=== PATIENT | female | born 1975 | race African-American/Black ===

== ENCOUNTER → 2017-07-24 | Day surgery (SDC) | payer OTHER ==
[~2017-07-24] MED LIST: ADVIL200 M1 PO; BELLADONNA/OPIUM 60 MG SUPP PR ONE; BIOTIN10 MG PO; BIRTH CONTROL PILLS; CEFTRIAXONE SOD 1 GM VIAL ONE; DEXAMETHASONE SOD PHOS INJ 4 MG/ML VIAL ONE; FENTANYL CITRATE/PF 100MCG/2 ML INJ ONE; GENTAMICIN SULFATE IV SCH; IOPAMIDOL 610MG/1ML 300 MG/ML VIAL IV ONE; LIDOCAINE HCL 2% LOCAL INJ 5 ML SDV VIAL INJ ONE; MIDAZOLAM HCL 2 MG/2 ML VIAL ONE; ONDANSETRON HCL INJ 2 MG/ML VIAL ONE; PROPOFOL IV EMULSION 10 MG/ML 20 ML VIAL ONE; SEVOFLURANE INHAL SOLN 250 ML PEN BTL ONE; SODIUM CHLORIDE 0.9% IV SCH
--- NOTE | 2017-08-31 04:58 | Operative Report ---
DATE OF PROCEDURE: July 24, 2017 PREOPERATIVE DIAGNOSES 1. Right recurrent vesicoureteric reflux. 2. Urinary tract infection history. POSTOPERATIVE DIAGNOSES 1. Right recurrent vesicoureteric reflux. 2. Urinary tract infection history. PROCEDURES PERFORMED 1. Cystourethroscopy with bilateral ureteral catheterization and retrograde ureteropyelography (separate procedure performed into 3 separate ureters, 2 on the right, 1 on the left, procedure performed for urinary tract infections). 2. Interpretation of retrograde ureteropyelography. 3. Supervision of fluoroscopy. No radiologist present. 4. Cystourethroscopy with intraureteric implantation of Deflux (separate procedure performed to control the reflux). 5. Pelvic examination under anesthesia. ANESTHESIA: General. COMPLICATIONS: None. CLINICAL SUMMARY: Bennett Hare is a 42-year-old woman with vesicoureteric reflux. 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 She has undergone a failed ureteral reimplantation as she previously had a Deflux procedure. Patient was evaluated, found to have vesicoureteric reflux and elected to proceed with Deflux implantation. She is deferred to open surgery. She is aware of the risks of bleeding, infection, injury to adjacent structures, need for additional procedures and failure. She understood all these risks and elected to proceed. OPERATIVE PROCEDURE IN DETAIL: Informed consent was verified. Bennett Hare was properly identified, taken to the operating room, and placed on the cystoscopy table in supine position. Anesthesia was uneventfully begun. The patient was then carefully and gently re-positioned in dorsal lithotomy position with all pressure points well padded. Her genitalia were prepared and draped in usual sterile fashion. A 22.5-British cystoscope sheath with the obturator in place was atraumatically inserted in patient's urethra and the bladder was drained. Panendoscopy of the urinary bladder revealed no suspicious mucosal lesions. No tumors, no stones, and no diverticula. Scars were noted from previous bladder surgeries performed by another urologist. There was even a skin bridge noted or at least a mucosal bridge noted on the right hand side of the bladder. Two ureteral orifices were identified on the right, 1 ureteral orifice was identified on the left. A ureteral catheter was used to cannulate all 3 ureteral orifices and retrograde ureteropyelograms were performed. Interpretation of retrograde ureteropyelography: Contrast was instilled in retrograde fashion bilaterally. There were no tumors, no stones, and no diverticula. Unobstructed drainage was observed fluoroscopically. 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 Deflux was utilized. A total of 2 syringes were utilized. Both techniques were utilized as well. First, we performed the HIT technique by hydrodistending the right ureteral orifice that was involved with the reflux into the lower moiety. We inserted the needle into the ureteral mucosa posteriorly and injected 1 syringe and allowing it to track circumferentially around the distal ureter and coapting the ureter. The needle was withdrawn and second syringe was loaded. We then inserted the second needle stick subureterally at the trigone and utilized the STING technique to lift and raise the right ureteral orifice. The patient's bladder was then drained. Cystoscope was withdrawn. Pelvic examination under anesthesia revealed no cystocele, no rectocele, and no abnormal palpable pelvic masses could be appreciated. There are no obvious mucosal lesions. The patient was then uneventfully reversed from anesthesia and taken to the recovery room in stable condition following the placement of the belladonna and opium suppository. There were no complications to the procedure. Patient tolerated the procedure well. Explicit postop instructions were given, and we will follow the patient up upon her return back to the [place] following her moving to [place], and hopefully, the patient will follow up prior to her departing the [place]. Job#: [id number]
== END | disposition home or self-care (01) ==
LOC: OR 11:26
PROVIDERS: ATTEND Urology
DX: N13.70 Vesicoureteral-reflux, unspecified (principal); Q62.5 Duplication of ureter; N39.0 Urinary tract infection, site not specified; D57.3 Sickle-cell trait; Z87.891 Personal history of nicotine dependence
CPT/HCPCS: 52327; 74420; 81025; C1758; J0696; J1100; J1580; J2001; J2250; J2405; Q9967